=== PATIENT | male | born 1995 | race African-American/Black ===

== ENCOUNTER 2017-01-22 05:23 | Emergency (ER) | payer OTHER ==
[~2017-01-22] VITALS: Ht 177.8 cm; Wt 73.0 kg
[~2017-01-22 05:23] MED LIST: CEPH-264 PO; HYDR-2678 PO
[2017-01-22 05:29] VITALS: BP 137/73
--- NOTE | 2017-01-22 06:13 | PHYS DOC ---
Past Medical History Past Medical History: Other Additional Past Medical Histor: EPILEPSY Past Surgical History: No Surgical History Alcohol Use: None Drug Use: None Adult General Chief Complaint Chief Complaint: KNEE INJURY HPI HPI Patient is a 21 year old male who presents with mother for evaluation of right her medial, lateral and posterior knee pain that developed overnight during his sleep. He thinks he had a seizure. He notes achy/spasm pain, worse with range of motion. Denies numbness, tingling, weakness. Denies known injury. Denies leg swelling, cough, dyspnea, fever or chills, rash. He took no medications prior to arrival. Review of Systems Review of Systems Constitutional: Denies fever or chills [] Eyes: Denies change in visual acuity, redness, or eye pain [] HENT: Denies nasal congestion or sore throat [] Respiratory: Denies cough or shortness of breath [] Cardiovascular: No additional information not addressed in HPI [] GI: Denies abdominal pain, nausea, vomiting, bloody stools or diarrhea [] : Denies dysuria or hematuria [] Musculoskeletal: Denies back pain [] Integument: Denies rash or skin lesions [] Neurologic: Denies headache, focal weakness or sensory changes [] Endocrine: Denies polyuria or polydipsia [] Current Medications Current Medications Current Medications Medications (Trade) Dose Ordered Sig/Bloivar Start Time Stop Time Status Last Admin Dose Admin Ibuprofen (Motrin) 400 mg 1X ONCE 01/22/17 06:15 01/22/17 06:16 DC 01/22/17 06:27 400 MG Allergies Allergies Allergies Coded Allergies Type Severity Reaction Last Updated Verified No Known Drug Allergies 04/14/16 No Physical Exam Physical Exam Constitutional: Well developed, well nourished, no acute distress, non-toxic appearance. [] HENT: Normocephalic, atraumatic, bilateral external ears normal, oropharynx moist, nose normal. [] Eyes: PERRLA, EOMI. [] Neck: Normal range of motion, supple. [] Cardiovascular: 2+ DP and PT pulses equal bilaterally [] Lungs & Thorax: Respirations even and unlabored [] Skin: Warm, dry, no erythema, no rash. [] Back: Normal range of motion. [] Extremities: Right lower extremity with no obvious deformity or discoloration; Has soft tissue tenderness to medial, posterior, and lateral knee with no visual or palpable abnormality; Able to flex/ex/IR/ER hip, knee full rom but with pain externally, ankle df/pf, toes df/pf; No obvious knee joint laxity with stressing; SILT wheeler/sa/sp/dp/tib distributions; good dp and pt pulses equal bilaterally Neurologic: Alert and oriented X 3, normal motor function, normal sensory function, no focal deficits noted. [] Psychologic: Affect normal, judgement normal, mood normal. [] Current Patient Data Vital Signs Vital Signs Date Time Temp Pulse Resp B/P (MAP) Pulse Ox O2 Delivery O2 Flow Rate FiO2 01/22/17 05:29 98.1 91 18 137/73 (94) 98 Room Air 98.1 Radiology/Procedures Radiology/Procedures X-ray right knee as interpreted by me with no acute fracture or dislocation Course & Med Decision Making Course & Med Decision Making Pertinent Labs and Imaging studies reviewed. (See chart for details) Discussed supportive care. Crutches given. Return precautions given. He and mother understand and agree with plan. Dragon Disclaimer Dragon Disclaimer This electronic medical record was generated, in whole or in part, using a voice recognition dictation system. Departure Departure Impression: Primary Impression: Right knee pain Disposition: HOME, SELF-CARE Condition: STABLE Referrals: NO PCP (PCP) Patient Instructions: Knee Pain, [id number] Additional Instructions: Take ibuprofen 400 mg every 6-8 hours as needed for pain. Follow-up with your primary care doctor within one week. Return for any concerns. Skyler TIRADO MD January 22, 2017 06:13
[2017-01-22] MEDS ORDERED: IBUPROFEN 400 MG TABLET. PO ONE (06:15)
--- NOTE | 2017-01-22 07:15 | RAD ---
Right knee, 3 views, 01/22/2017: History: Knee pain No fracture or dislocation is identified. No significant arthritic change is seen. IMPRESSION: No acute bony abnormality is detected.
== END 2017-01-22 06:29 | disposition home or self-care (01) ==
LOC: ER 05:23
DX: M25.561 Pain in right knee (principal); G40.909 Epilepsy, unspecified, not intractable, without status epilepticus
CPT/HCPCS: 73562; 99284

== ENCOUNTER 2017-04-13 10:28 | Emergency (ER) | payer OTHER ==
[~2017-04-13] VITALS: Ht 177.8 cm; Wt 72.6 kg
[2017-04-13 10:47] LABS: BASO # 0.1 x10^3/uL (0.0-0.2); BASO % 1 % (0-3); EOS % 4 % (0-3); HEMATOCRIT 42.3 % (39.0-53.0); HEMOGLOBIN 14.4 g/dL (13.0-17.5); LYMPH # 2.2 x10^3/uL (1.0-4.8); LYMPH % 34 % (24-48); MEAN CORPUSCULAR HEMOGLOBIN 30 pg (25-35); MEAN CORPUSCULAR HGB CONC 34 g/dL (31-37); MEAN CORPUSCULAR VOLUME 87 fL (79-100); MONO % 8 % (0-9); NEUT % 53 % (31-73); PLATELET COUNT 273 x10^3/uL (140-400); RED BLOOD COUNT 4.84 x10^6/uL (4.30-5.70); RED CELL DISTRIBUTION WIDTH 13.8 % (11.5-14.5); WHITE BLOOD COUNT 6.4 x10^3/uL (4.0-11.0)
[2017-04-13 10:53] LABS: CALCIUM 8.8 mg/dL (8.5-10.1); CREATININE 1.2 mg/dL (0.7-1.3); GFR 93.4; POTASSIUM 3.7 mmol/L (3.5-5.1)
[2017-04-13 10:58] LABS: ALBUMIN 4.3 g/dL (3.4-5.0); ALBUMIN/GLOBULIN RATIO 1.1 (1.0-1.7); TOTAL BILIRUBIN 0.6 mg/dL (0.2-1.0); TOTAL PROTEIN 8.2 g/dL (6.4-8.2)
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
[2017-04-13 11:45] VITALS: BP 107/55
[2017-04-13] MEDS ORDERED: DIPHTH,PERTUSS(ACELL),TET TOX 0.5 ML DISP.SYRIN. VAX IM ONE (12:00)
[2017-04-13] MEDS ORDERED: DIVALPROEX DELAYED RELEASE 250 MG TABLET.DR. PO ONE (12:00)
== END 2017-04-13 12:09 | disposition home or self-care (01) ==
LOC: ER 10:28
DX: G40.909 Epilepsy, unspecified, not intractable, without status epilepticus (principal); S50.311A Abrasion of right elbow, initial encounter; S60.511A Abrasion of right hand, initial encounter; X58.XXXA Exposure to other specified factors, initial encounter; Y93.89 Activity, other specified; Y92.89 Other specified places as the place of occurrence of the external cause; Y99.8 Other external cause status
CPT/HCPCS: 36415; 80053; 80164; 83605; 85025; 90471; 90715; 99284-25